=== PATIENT | female | born 1985 | race Caucasian/White ===

== ENCOUNTER 2017-02-14 19:59 | Emergency (ER) | payer OTHER ==
[~2017-02-14] VITALS: Ht 175.3 cm; Wt 99.5 kg
[2017-02-14 20:03] VITALS: BP 126/96
[2017-02-14 21:07] LABS: HEMATOCRIT 40.4 % (36.0-46.0); MCH 30.4 PG (29.0-34.0); MCHC 33.9 G/DL (30.0-36.0); MCV 89.8 FL (83-99); MEAN PLAT.VOLUME 10.4 uM^3 (9.5-12.4); PLATELET COUNT 211 K/uL (156-360); RBC DIS.WIDTH-CV 12.7 % (11.8-14.6); RBC DIS.WIDTH-SD 41.8 % (39-53); WHITE BLOOD COUNT 11.1 K/uL (4.1-10.2)
[2017-02-14 21:17] LABS: D-DIMER ELISA < 150.00 ng/mLDDU (<230)
[2017-02-14 21:20] LABS: CHLORIDE 108 mEq/L (99-109); POTASSIUM 3.7 mEq/L (3.7-5.4); SODIUM 141 mEq/L (136-147)
[2017-02-14 21:22] LABS: GLUCOSE 70 mg/dL (70-99)
[2017-02-14 21:23] LABS: ANION GAP 9 MEQ/L (2-14)
[2017-02-14 21:26] LABS: GFR ESTIMATE (CALCULATED) > 59 mL/min/
[2017-02-14 21:27] LABS: UREA NITROGEN (BUN) 9 mg/dL (9-23)
[2017-02-14 21:30] LABS: TROP-I INTERPRETATION NEGATIVE; TROPONIN-I < 0.01 ng/mL (0.0-0.30)
== END 2017-02-14 22:49 | disposition left against medical advice (07) ==
LOC: EME 19:59
DX: R07.9 Chest pain, unspecified (principal); M54.2 Cervicalgia; M25.512 Pain in left shoulder; M79.602 Pain in left arm; R05 Cough; F17.200 Nicotine dependence, unspecified, uncomplicated; Z53.20 Procedure and treatment not carried out because of patient's decision for unspecified reasons
CPT/HCPCS: 71020; 80048; 84484; 85027; 85379; 93005; 99281; 99282